=== PATIENT | male | born 1975 | race Caucasian/White ===

== ENCOUNTER 2019-12-13 06:05 | Day surgery (SDC) | payer OTHER ==
[~2019-12-13 06:05] MED LIST: JANUMET 50-1,01 EACH PO; TARKA ER 2-1801 EACH PO
== END 2019-12-13 12:10 | disposition home or self-care (01) ==
LOC: CIR.AMB 06:05
PROVIDERS: ATTEND Urology
DX: N47.1 Phimosis (principal)